=== PATIENT | male | born 1955 ===

== ENCOUNTER 2025-04-06 07:52 | Day surgery (SDC) | payer OTHER ==
[2025-03-31 14:17] VITALS: BP 140/85
[~2025-04-06] VITALS: Ht 182.9 cm; Wt 91.6 kg
[~2025-04-06 07:52] MED LIST: COZAAR100 MG PO
[2025-04-06] MEDS ORDERED: CEFTRIAXONE SODIUM 1,000 MG VIAL ONE (13:49)
[2025-04-06] MEDS ORDERED: METRONIDAZOLE/SODIUM CHLORIDE 500 MG/100 ML PIGGYBACK IV ONE (13:50)
[2025-04-06] MEDS ORDERED: ENOXAPARIN SODIUM 40 MG/0.4 ML SYRINGE SUBCUTANEO ONE (14:11)
[2025-04-06] MEDS ORDERED: BUPIVACAINE HCL/MPF 0.5% 30ML VIAL ONE (15:43)
[2025-04-06] MEDS ORDERED: NEURONTIN300 MG PO (17:35)
[2025-04-06] MEDS ORDERED: POLY119PG PO (17:35)
[2025-04-06] MEDS ORDERED: PERCOCET 5-3251 EACH PO (17:35)
[2025-04-06] MEDS ORDERED: CELEBREX200MG PO (17:35)
== END 2025-04-06 21:30 | disposition home or self-care (01) ==
LOC: CIR.AMB 07:52
PROVIDERS: ATTEND Surgery
DX: K42.0 Umbilical hernia with obstruction, without gangrene (principal); Z91.013 Allergy to seafood
CPT/HCPCS: 49594; C1781